=== PATIENT | female | born 1980 | race Caucasian/White ===

== ENCOUNTER 2017-08-25 10:48 | Emergency (ER) | payer OTHER ==
[2017-08-25] MEDS ORDERED: NS 500 ML IV ONE (10:57)
[2017-08-25] MEDS ORDERED: MAG HYDROX/AL HYDROX/SIMETH 30 ML UDCUP PO ONE (10:57)
[2017-08-25] MEDS ORDERED: LIDOCAINE 2% VISCOUS 15 ML UDCUP PO ONE (10:57)
--- NOTE | 2017-08-25 11:01 | CPEKG ---
Heart Rate: 82 RR Interval: 732 P-R Interval: 176 QRSD Interval: 78 QT Interval: 380 QTC Interval: 444 P Lisle: 75 QRS Lisle: 99 T Wave Lisle: 38 EKG Severity - BORDERLINE ECG - EKG Impression: SINUS RHYTHM EKG Impression: PROBABLE LEFT ATRIAL ABNORMALITY EKG Impression: CONSIDER RIGHT VENTRICULAR HYPERTROPHY Electronically Signed By: Jitendra Ackerman 25-Aug-2017 11:09:35
[2017-08-25 11:03] VITALS: RESP 16; TEMP 98.2; O2SAT 97
--- NOTE | 2017-08-25 11:06 | EDPHY ---
H & P Time Seen by Provider: 08/25/17 10:57 HPI/ROS: HPI Chest pain. 36-year-old female by private vehicle. She complains of mid chest discomfort ongoing since last night. She reports that it was more intense last night but has been constant. She describes it as a pressure and tightness sensation mid substernal area. She also reports that she has had a dry cough associated with it. She reports that she was diagnosed with influenza he in mid July. She has had a lingering cough since her episode of influenza. She has no cardiac risk factors. No family history of coronary artery disease. She is not on control or hormonal therapy. No prolonged sedentary activity. No prior history of DVT or PE. ROS: Constitutional: No fever, no chills. No weakness. Eyes: No discharge. No changes in vision. ENT: No sore throat. No nasal congestion or rhinorrhea. Respiratory: As above. No shortness of breath. Cardiac: As above, no palpitations. Gastrointestinal: No abdominal pain, no vomiting, no diarrhea. Genitourinary: No hematuria. No dysuria or increased frequency with urination. Musculoskeletal: No back pain. No neck pain. No myalgias or arthralgias. Skin: No rashes. Neurological: No headache. No focal weakness or altered sensation. Past medical history: Kidney surgery. As above. Social history: Nonsmoker. No alcohol. Denies IV drugs and street drugs. Here by herself. Physical Exam: General Appearance: Alert, mildly anxious. This patient is responding to questions appropriately and in full sentences. This patient appears well- hydrated and well-nourished. Eyes: Pupils equal and round no pallor or injection. No lid edema, erythema or injection. Respiratory: There are no retractions, lungs are clear to auscultation with good air movement bilaterally. Cardiovascular: Regular rate and rhythm. No murmur. Gastrointestinal: Abdomen is soft and nontender, no masses, bowel sounds normal. No focal tenderness at McBurney's point. No Cabello sign. Neurological: Motor sensory function is grossly intact. Cranial nerves are normal. Gait is normal. Skin: Warm and dry, no rashes. Musculoskeletal: Neck is supple and nontender. Extremities are symmetrical. All joints range without pain or impingement. Psychiatric: No agitation. No depression. Database: EKG: EKG time is 11:00 a.m.; EKG shows a narrow complex normal sinus rhythm with a ventricular rate of 82. The PA, QRS, QT intervals are within normal limits. There are no ST-T wave changes indicative of ischemic or injury pattern. No evidence of right heart strain. Interpreted by me. Imaging: Chest x-ray AP portable; the cardiac mediastinal silhouette is unremarkable. No evidence of infiltrate or pneumothorax. No acute cardiopulmonary disease process noted. Interpreted by me. Procedures: Emergency department course: IV placed. Vital signs reviewed. EKG obtained and reviewed by myself. She is low risk for acute coronary syndrome. GERD as well as esophageal spasm considered in differential diagnosis. She will be given a GI cocktail to see if she has relief of her symptoms with this. 12:15 p.m., patient re-evaluated. She was sleeping but easily arousable. She does not appear to be in any discomfort. She reports having a very low level of chest discomfort at this time. Results of her diagnostic workup discussed with her. Her emergency department workup has been reassuring. She is requesting discharge I feel she is safe to go home. She is to follow up with her primary care physician on Sunday for re-evaluation. Return to emergency department precautions were thoroughly reviewed with her. All of her questions were answered. She was discharged in good condition. Differential Diagnosis: The differential diagnosis on this patient includes but is not limited to anxiety reaction, GERD, esophageal spasm. Pulmonary embolism, acute coronary syndrome, myocarditis, pericarditis, aortic dissection, pneumonia unlikely. This represents a partial list of diagnoses considered. These considerations are based on history, physical exam, past history, reassessment and diagnostic testing. Smoking Status: Never smoked Constitutional: Initial Vital Signs Temperature (C) 36.8 C 08/25/17 11:00 Heart Rate 81 08/25/17 11:00 Respiratory Rate 16 08/25/17 11:00 Blood Pressure 109/66 08/25/17 11:00 O2 Sat (%) 97 08/25/17 11:00 O2 Delivery Mode Room Air Allergies/Adverse Reactions: Milk Containing Products Allergy (Intermediate, Verified 08/25/17 11:04) Abdominal Pain Home Medications: Medication Instructions Recorded NK [No Known Home Meds] 08/25/17 Medical Decision Making - Diagnostics Imaging Results: Imaging Impressions Chest X-Ray 08/25/17 10:58 Impression: Negative frontal chest radiograph. - Data Points Laboratory Results: Laboratory Results 08/25/17 11:10 08/25/17 11:10 08/25/17 08/25/17 08/25/17 11:10 11:10 11:10 WBC RBC Hgb Hct MCV MCH MCHC RDW Plt Count MPV Neut % (Auto) Lymph % (Auto) [place] % (Auto) Eos % (Auto) Baso % (Auto) Nucleat RBC Rel Count Absolute Neuts (auto) Absolute Lymphs (auto) Absolute Monos (auto) Absolute Eos (auto) Absolute Basos (auto) Absolute Nucleated RBC Immature Gran % Immature Gran # PT 13.6 SEC SEC (12.0-15.0) INR 1.05 (0.83-1.16) APTT 33.8 SEC SEC (23.0-38.0) D-Dimer 0.31 ug/mLFEU ug/mLFEU (0.00-0.50) Sodium 140 mEq/L mEq/L (134-144) Potassium 4.4 mEq/L mEq/L (3.5-5.2) Chloride 105 mEq/L mEq/L (97-110) Carbon Dioxide 21 mEq/l L mEq/l (22-31) Anion Gap 14 mEq/L mEq/L (8-16) BUN 11 mg/dL mg/dL (7-23) Creatinine 0.9 mg/dL mg/dL (0.6-1.0) Estimated GFR > 60 Glucose 87 mg/dL mg/dL (70-100) Calcium 9.0 mg/dL mg/dL (8.5-10.4) Creatine Kinase 69 IU/L IU/L (0-156) CK-MB (CK-2) Fraction 0.26 ng/mL ng/mL (0.00-4.55) Troponin I < 0.012 ng/mL ng/mL (0.000-0.034) Beta HCG, Qual NEGATIVE 08/25/17 11:10 WBC 5.45 10^3/uL 10^3/uL (3.80-9.50) RBC 4.61 10^6/uL 10^6/uL (4.18-5.33) Hgb 13.6 g/dL g/dL (12.6-16.3) Hct 40.9 % % (38.0-47.0) MCV 88.7 fL fL (81.5-99.8) MCH 29.5 pg pg (27.9-34.1) MCHC 33.3 g/dL g/dL (32.4-36.7) RDW 12.4 % % (11.5-15.2) Plt Count 332 10^3/uL 10^3/uL (150-400) MPV 9.1 fL fL (8.7-11.7) Neut % (Auto) 68.5 % % (39.3-74.2) Lymph % (Auto) 22.9 % % (15.0-45.0) [place] % (Auto) 6.6 % % (4.5-13.0) Eos % (Auto) 0.7 % % (0.6-7.6) Baso % (Auto) 1.1 % % (0.3-1.7) Nucleat RBC Rel Count 0.0 % % (0.0-0.2) Absolute Neuts (auto) 3.73 10^3/uL 10^3/uL (1.70-6.50) Absolute Lymphs (auto) 1.25 10^3/uL 10^3/uL (1.00-3.00) Absolute Monos (auto) 0.36 10^3/uL 10^3/uL (0.30-0.80) Absolute Eos (auto) 0.04 10^3/uL 10^3/uL (0.03-0.40) Absolute Basos (auto) 0.06 10^3/uL 10^3/uL (0.02-0.10) Absolute Nucleated RBC 0.00 10^3/uL 10^3/uL (0-0.01) Immature Gran % 0.2 % % (0.0-1.1) Immature Gran # 0.01 10^3/uL 10^3/uL (0.00-0.10) PT INR APTT D-Dimer Sodium Potassium Chloride Carbon Dioxide Anion Gap BUN Creatinine Estimated GFR Glucose Calcium Creatine Kinase CK-MB (CK-2) Fraction Troponin I Beta HCG, Qual Medications Given: Discontinued Medications Al Hydroxide/Mg Hydroxide (Maalox Susp) 30 ml PO ONCE ONE Stop: 08/25/17 10:58 Last Admin: 08/25/17 11:17 Dose: 30 ml Sodium Chloride (Ns) 500 mls @ 1,000 mls/hr IV EDNOW ONE PRN Reason: Protocol Stop: 08/25/17 11:26 Last Admin: 08/25/17 11:17 Dose: 500 mls Lidocaine (Lidocaine 2% Viscous) 15 ml PO ONCE ONE Stop: 08/25/17 10:58 Last Admin: 08/25/17 11:17 Dose: 15 ml Departure - Departure Disposition: Home, Routine, Self-Care Clinical Impression: Chest discomfort Condition: Good Instructions: Chest Pain (ED) Additional Instructions: Read and follow provided instructions. Follow-up with your primary care physician on Sunday or Sunday of this week for re-evaluation. Return to the emergency department for worsening chest pain, shortness of breath , fever, worsening cough or other serious concerns. Referrals: Doctor Not,On Staff, MD [Primary Care Provider] - As per Instructions
[2017-08-25 11:15] LABS: PLATELET COUNT 332 10^3/uL (150-400)
[2017-08-25 11:29] LABS: CREATINE KINASE 69 IU/L (0-156); INR 1.05 (0.83-1.16); PROTIME(PATIENT) 13.6 SEC (12.0-15.0)
[2017-08-25 12:42] VITALS: BP 116/69; PULSE 68
== END 2017-08-25 12:39 | disposition home or self-care (01) ==
LOC: CED 10:48
PROC: 3E0337Z Introduction of Electrolytic and Water Balance Substance into Peripheral Vein, Percutaneous Approach (ICD-10-PCS; principal; 2017-08-25)
DX: R07.89 Other chest pain (principal); E86.9 Volume depletion, unspecified
CPT/HCPCS: 71045-PO; 80048-PO; 82550-PO; 82553-PO; 84484-PO; 84703-PO; 85025-PO; 85378-PO; 85610-PO; 85730-PO

== ENCOUNTER 2017-11-29 18:58 | Emergency (ER) | payer MEDICAID, OTHER ==
[2017-11-29] MEDS ORDERED: IBUPROFEN 600 MG TAB PO ONE ×2 (19:26→19:28)
[2017-11-29] MEDS ORDERED: ERYTHROMYCIN 0.5% 1 GM OPHT.OINT RTEYE ONE (19:44)
--- NOTE | 2017-11-29 19:47 | EDPHY ---
H & P Time Seen by Provider: 11/29/17 19:36 HPI/ROS: This patient has right upper eyelid complain of itching followed by mild burning discomfort that started yesterday and persists today with increasing symptoms. She tried [id number] eyedrops without change. She reports no symptoms to the eye itself no change in vision. No matting of her eyelids or discharge. She has not had this symptom before. She has no left eye symptoms. ROS: No fevers or chills. No other constitutional complaints HEENT: No recent URI symptoms. No trauma to the eye. No sore throat. Integumentary: No skin lesions. Neuro: No headache. 5 point ROS is otherwise negative Smoking Status: Never smoked Physical Exam: Physical Exam Vital signs are normal. General: No acute distress HEENT: Nose: Clear discharge bilaterally. No sinus tenderness to percussion. Ears: External canals and tympanic membranes are clear with no erythema or abnormal findings bilaterally. Oropharynx: No erythema or exudates. No dysphonia. No drooling or stridor. No facial skin lesions. Eyes: Pupils equal and react to light. Extraocular motions are intact. Right upper eyelid erythema and mild edema is present. No discharge. No lower eyelid abnormalities. No conjunctival injection. Neck: Supple with no meningismus. No lymphadenopathy Lungs: Clear to auscultation bilaterally with no rales, rhonchi or wheeze. No respiratory distress. Cardiac: Regular rate and rhythm with no murmur gallop or rub Skin: No rash or pallor. Neuro: Alert with no focal deficits noted. Differential diagnosis: Blepharitis, contact dermatitis, allergic dermatitis Constitutional: Initial Vital Signs Temperature (C) 36.6 C 11/29/17 19:09 Heart Rate 77 11/29/17 19:09 Respiratory Rate 18 11/29/17 19:09 Blood Pressure 112/70 11/29/17 19:09 O2 Sat (%) 96 11/29/17 19:09 O2 Delivery Mode Room Air Allergies/Adverse Reactions: Milk Containing Products Allergy (Intermediate, Verified 08/25/17 11:04) Abdominal Pain Home Medications: Medication Instructions Recorded Cephalexin [Keflex (*)] 500 mg PO TID #21 cap 11/29/17 MDM/Departure - MDM Medications Given: Discontinued Medications Erythromycin (Erythromycin 0.5%) 1 luis RTEYE ONCE ONE Stop: 11/29/17 19:45 Last Admin: 11/29/17 20:16 Dose: 1 luis Ibuprofen (Motrin) 600 mg PO EDNOW ONE Stop: 11/29/17 19:29 Last Admin: 11/29/17 19:29 Dose: 600 mg ED Course/Re-evaluation: Think this patient likely has infectious blepharitis given warmth to touch. Counseled regarding this. She is given 1st dose of erythromycin ointment applied eyelid. I instructed her to use warm packs as well explaining the that warm packs an appointment with typically resolve this condition but if she has persistent symptoms, she will start Keflex antibiotic orally in addition. No clinical evidence of significant associated conjunctivitis or other ocular pathology. - Depart Disposition: Home, Routine, Self-Care Clinical Impression: Blepharitis of eyelid of right eye Qualifiers: Blepharitis type: unspecified type Eyelid: upper Qualified Code(s): H01.001 - Unspecified blepharitis right upper eyelid Condition: Good Instructions: Blepharitis (ED) Additional Instructions: Diagnosis: Blepharitis-right upper eyelid Plan: Apply warm packs 2 to 3 times a day until symptoms resolve Erythromycin ointment 2 times a day for the next week. If symptoms are not improving with erythromycin warm packs to the next few days then start Keflex antibiotic orally in addition and used both the erythromycin in the Keflex until the symptoms resolve. Be sure to complete the course the Keflex-7 days. Is still not improving, follow up with the transmission specialist listed below. Return emergency department for any significant worsening despite the treatment plan Prescriptions: Cephalexin [Keflex (*)] 500 mg PO TID #21 cap Referrals: NONE *PRIMARY CARE P,. [Primary Care Provider] - As per Instructions Iza Vargas MD [Medical Doctor] - As per Instructions
[2017-11-29 22:15] VITALS: BP 116/78
== END 2017-11-29 20:25 | disposition home or self-care (01) ==
LOC: CED 18:58
DX: H01.001 Unspecified blepharitis right upper eyelid (principal)